=== PATIENT | male | born 1970 | race Caucasian/White ===

== ENCOUNTER 2021-02-09 11:10 | Day surgery (SDC) | payer OTHER ==
[2021-02-09] MEDS ORDERED: Ringers Lactate 1,000 ML IV ONE (11:37)
[2021-02-09] MEDS ORDERED: CEFAZOLIN/SWI 1gm 1 GM/10 ML SYR ONE ×2 (11:38→11:42)
[2021-02-09] MEDS ORDERED: BUPIVACAINE 0.25% PF 10 ML VIAL ONE (13:34)
[2021-02-09] MEDS ORDERED: propofoL 200 MG/20 ML VIAL IV ONE (13:38)
[2021-02-09] MEDS ORDERED: MIDAZOLAM HCL 2 MG/2 ML INJ ONE (13:38)
[2021-02-09] MEDS ORDERED: FENTANYL CITR 100 MCG/2 ML ONE (13:39)
[2021-02-09] MEDS ORDERED: dexAMETHasone 10 MG/ML VIAL ONE (13:50)
--- NOTE | 2021-02-09 14:26 | P.OP ---
Preoperative diagnosis: LEFT Shoulder and RIGHT neck lipomas Postoperative diagnosis: LEFT Shoulder and RIGHT neck lipomas Primary procedure: Excisoin of LEFT Shoulder and RIGHT neck lipomas Anesthesia: GETA + Local Estimated blood loss: <10cc Specimen: Lipomas Findings: ~5cm round shoulder lipoma, ~1cm RIGHT neck lipoma Complications: None Transferred to: Recovery Room Condition: Good
[2021-02-09] MEDS ORDERED: KETOROLAC 30 MG/ML INJ ONE (14:39)
--- NOTE | 2021-02-09 14:50 | OP ---
Date of Procedure: 02/09/2021 Surgeon: Wilmer Plata MD, Preoperative Diagnoses: Left shoulder and right neck lipomas. Postoperative Diagnoses: Left shoulder and right neck Lipomas. Procedures Performed: Excision of left shoulder and right neck lipoma. Anesthesia: General endotracheal plus local with 0.25% Marcaine. Estimated Blood Loss: 2 cc. Specimen: Lipoma. Findings: Approximately 5 cm round shoulder lipoma and approximately 1 cm to 1.5 cm right neck lipom a near the trapezius. Complications: None. Disposition: The patient transferred to recovery room in good condition. Procedure In Detail: After informed consent was obtained, the patient was brought to the operating r oom, prepped and draped in usual sterile fashion. After adequate anesthesia was achieved, a linear i ncision was made after appropriately anesthetizing the skin over the left shoulder posterior scapular region down through subcutaneous tissues with a 15 blade. Electrocautery was used to dissect circum ferentially around an obvious lipoma which was removed in its entirety. I sent it out en bloc. It w as approximately 5 cm, round lipomatous mass consistent with a benign lipoma. The cavity was then ir rigated. Hemostasis was achieved with electrocautery. The deep dermal plane was closed with interru pted 3-0 Vicryl sutures and the skin was closed with 4-0 Monocryl in a running fashion. Dermabond wa s placed over the top. Attention was then turned to the right neck trapezius area. An approximately 1 cm lipoma was evident in this area. The area was appropriately anesthetized and sharply incised o nce again with a 15 blade down to subcutaneous tissues and I dissected out circumferentially a lipoma tous mass in the trapezius area. This was consistent with a 1.5 cm lipoma that was sent off for path ologic examination. The wound cavity was then irrigated and hemostasis was achieved with electrocaut ivan. Deep dermal plane was closed once again with a 3-0 Vicryl suture and skin was closed with 4-0 M onocryl in a running fashion Dermabond was placed over the top. The patient tolerated the procedure well without evidence of complication, transferred to PACU in good condition. All counts were correc t at the end of the case. TK/MODL Voice ID: [id number] Report ID: [id number]
[2021-02-09 15:23] VITALS: BP 121/69; TEMP 97.2; O2SAT 98
== END 2021-02-09 15:45 | disposition home or self-care (01) ==
LOC: OR 11:10
PROVIDERS: ATTEND Surgery
PROC: 0JB40ZZ Excision of Right Neck Subcutaneous Tissue and Fascia, Open Approach (ICD-10-PCS; 2021-02-09)
PROC: 0JBF0ZZ Excision of Left Upper Arm Subcutaneous Tissue and Fascia, Open Approach (ICD-10-PCS; principal; 2021-02-09 13:00)
DX: D17.1 Benign lipomatous neoplasm of skin and subcutaneous tissue of trunk (principal); D17.0 Benign lipomatous neoplasm of skin and subcutaneous tissue of head, face and neck; Z20.822 Contact with and (suspected) exposure to COVID-19
CPT/HCPCS: 88304; 11406; 11422; U0003; J2704; J2250; J3010; J1100; J0690 ×2; J7120

== ENCOUNTER 2021-09-17 08:21 | Day surgery (SDC) | payer OTHER ==
[2021-09-17] MEDS ORDERED: Ringers Lactate 1,000 ML IV ONE ×2 (08:58→11:47)
[2021-09-17] MEDS ORDERED: CEFAZOLIN/SWI 2gm 2 GM/20 ML SYR ONE (08:58)
[2021-09-17] MEDS ORDERED: propofoL 200 MG/20 ML VIAL IV ONE (10:30)
[2021-09-17] MEDS ORDERED: MIDAZOLAM HCL 2 MG/2 ML INJ ONE (10:31)
[2021-09-17] MEDS ORDERED: FENTANYL CITR 100 MCG/2 ML ONE (10:31)
[2021-09-17] MEDS ORDERED: KETOROLAC 30 MG/ML INJ ONE (10:31)
[2021-09-17] MEDS ORDERED: dexAMETHasone 10 MG/ML VIAL ONE (10:31)
[2021-09-17] MEDS ORDERED: LIDOCAINE 2% MPF 5 ML VIAL ONE (10:31)
[2021-09-17] MEDS ORDERED: BUPIVACAINE 0.25% PF 10 ML VIAL ONE ×2 (10:32→11:31)
[2021-09-17] MEDS ORDERED: ONDANSETRON 4 MG/2 ML VIAL ONE (10:33)
[2021-09-17] MEDS ORDERED: ROCURONIUM 50 MG/5 ML VIAL IV ONE (10:39)
[2021-09-17] MEDS ORDERED: BUPIVACAINE 0.5% PF 10 ML VIAL ONE (11:30)
[2021-09-17] MEDS ORDERED: NS 0.9% VIAL 20 ML ONE (11:33)
[2021-09-17] MEDS ORDERED: dexAMETHasone 4 MG/ML VIAL ONE (11:36)
--- NOTE | 2021-09-17 11:51 | P.OP ---
Preoperative diagnosis: Recurrent Ventral Incisional Hernia Postoperative diagnosis: Recurrent Ventral Incisional Hernia Primary procedure: Laparoscopic Ventral Hernia Repair with Mesh Anesthesia: GETA + Local Estimated blood loss: <5cc Specimen: none Findings: ventral incisional hernia Complications: None Transferred to: Recovery Room Condition: Good
[2021-09-17 12:33] VITALS: O2SAT 100
[2021-09-17 13:00] VITALS: BP 135/80
[2021-09-17 14:31] VITALS: TEMP 96.5
--- NOTE | 2021-09-17 23:04 | OP ---
Date of Procedure: 09/17/2021 Surgeon: Wilmer Plata MD, Preoperative Diagnosis: Recurrent ventral incisional hernia. Postoperative Diagnosis: Recurrent ventral incisional hernia. Procedure Performed: A laparoscopic ventral hernia repair with mesh. Anesthesia: General endotracheal plus local with 0.25% Marcaine. Estimated Blood Loss: Less than 5 mL. Specimen: None. Findings: Ventral incisional supraumbilical hernia. Complications: None. Disposition: The patient was transferred to recovery room in good condition. Implants: 1.An 11.[address] mesh with echo positioning System. 2.SorbaFix absorbable fixation tacking system. Procedure In Detail: After informed was obtained, the patient was brought to the operating room, pre pped and draped in the usual sterile fashion. After adequate anesthesia was achieved, an area in the left upper quadrant was anesthetized with 0.25% Marcaine and sharply incised. A 5 mm optical trocar was introduced in the abdomen without complication. Insufflation was obtained to 15 mmHg at this ti me. No injury to vital structures upon entry into the abdomen. At this point, additional trocar sit e was chosen in the left lower quadrant, similarly anesthetized and sharply incised. A 12 mm trocar was placed under direct vision without any complication. I then used a LigaSure device to take down the partially the falciform ligament superiorly and some of the preperitoneal fat, which was found to be contained in a supraumbilical hernia. This area was swept clean until good fascial tissue was ap preciated. The Endo stitch with the V-Loc was then used to run the stitch with good approximation of tissues. I then sized 11.4 cm Ventralight mesh with echo positioning system and placed it in the pr eperitoneal space, deployed the balloon system, and then secured it with a double crown tack system a nd removed the balloon deployment system. At this point, approximately 60 tacks were used to secure it to the anterior abdominal wall with good apposition of tissues. The patient was then slightly rol led away and I closed the defect using a Zechariah-Trish suture passer with 0 Vicryl in interrupted f ashion with good approximation of tissues. The abdomen was then completely desufflated under direct visualization without any complication. Remaining trocars were removed. All skin edges were copious ly irrigated and closed with 4-0 Monocryl in a running fashion. Dermabond was placed over top. The patient tolerated the procedure well without any complication and transferred to PACU in good conditi on. All counts were correct at the end of the case. NANCY/CORINE Voice ID: [id number] Report ID: [id number]
== END 2021-09-17 13:25 | disposition home or self-care (01) ==
LOC: OR 08:21
PROVIDERS: ATTEND Surgery
PROC: 0WUF4JZ Supplement Abdominal Wall with Synthetic Substitute, Percutaneous Endoscopic Approach (ICD-10-PCS; principal; 2021-09-17 10:15)
DX: K43.2 Incisional hernia without obstruction or gangrene (principal); U07.1 COVID-19
CPT/HCPCS: 80048; 36415; 49656; U0003; J2704; J1100 ×2; J2250; J3010; J0690; J7120 ×2; J2405; C1781

== ENCOUNTER 2024-04-09 08:14 | Day surgery (SDC) | payer OTHER ==
[2024-04-07 16:10] LABS: Absolute Basophils 0.1 K/uL (0-0.5); Absolute Eosinophils 0.2 K/uL (0-0.5); Absolute Lymphocytes (CBC) 2.6 K/uL (0.7-4.9); Absolute Monocytes 0.8 K/uL (0.1-1.3); Absolute Neutrophil 4.2 K/uL (1.8-8.0); Basophils % 0.8 % (0-1.3); Eosinophils % 2.2 % (0-4.4); Hemoglobin 15.1 g/dL (13.6-17.9); Lymphocytes % 33.5 % (15.3-44.8); MCH 30.5 pg (27.0-35.0); MCV 84.9 fL (80-100); Monocytes % 10.2 % (3.3-12.3); Neutrophils % 53.3 % (41.7-73.7); Nucleated Red Blood Cells % 0.2 % (0-0); Platelets 204 thou/uL (152-406); RBC Red Blood Cell Count 4.96 M/uL (4.33-5.43); Red Cell Distribution Width 13.8 % (12.1-15.2)
[2024-04-07 16:21] LABS: Anion Gap 8.6 mEq/L (5.0-15.0); Potassium 3.6 mEq/L (3.5-5.1)
--- NOTE | 2024-04-08 11:52 | EKG ---
Test Date: 2024-04-07 Test Time: 15:14:10 Dice Manager: PILO MEASUREMENT RESULTS: Intervals: Rate: 65 CO: 162 QRSD: 96 QT: 398 QTc: 413 [place]: P: 22 CO: 162 QRS: -29 T: 46 INTERPRETIVE STATEMENTS: Normal sinus rhythm Normal ECG No previous ECG available for comparison Electronically Signed On 04-08-24 11:50:22 CDT by Wilman Kerr
[2024-04-09] MEDS: Ringers Lactate 1,000 ML IV ONE (08:35)
[2024-04-09] MEDS ORDERED: ONDANSETRON 4 MG/2 ML VIAL ONE (09:56)
[2024-04-09] MEDS ORDERED: LIDOCAINE 2% MPF 5 ML VIAL ONE (09:56)
[2024-04-09] MEDS ORDERED: propofoL 200 MG/20 ML VIAL IV ONE (09:56)
[2024-04-09] MEDS ORDERED: MIDAZOLAM HCL 2 MG/2 ML INJ ONE (09:57)
[2024-04-09] MEDS ORDERED: FENTANYL CITR 100 MCG/2 ML ONE (09:57)
[2024-04-09] MEDS ORDERED: LIDOCAINE HCL/EPINEPHRINE 20 ML MDV ONE (09:58)
[2024-04-09] MEDS: CEFAZOLIN SODIUM 2 GM/VIAL ONE (10:10)
[2024-04-09] MEDS: LIDOCAINE HCL/EPINEPHRINE 20 ML MDV ONE (10:33)
[2024-04-09] MEDS ORDERED: EPHEDRINE SULF 50 MG/ML VIAL ONE (10:55)
--- NOTE | 2024-04-09 11:14 | P.OP ---
Preoperative diagnosis: RIGHT upper Back Intramuscular Lipoma Postoperative diagnosis: RIGHT upper Back Intramuscular Lipoma Primary procedure: Excision of RIGHT upper Back Intramuscular Lipoma Anesthesia: GETA Estimated blood loss: <5cc Specimen: Lipoma / skin bridge Findings: small subcutanous lipoma, 7cm x 6cm x 4cm intramuscular lipoma Complications: None Drain(s): AJIT drain (10 Chadian round) Fluids & blood products: Transferred to: Recovery Room () Condition: Good
[2024-04-09 12:00] VITALS: TEMP 97
[2024-04-09] MEDS ORDERED: HYDROCODONE/APAP 5/325 MG TAB ONE (12:03)
--- NOTE | 2024-04-09 12:17 | OP ---
Date of Procedure: 04/09/2024 Surgeon: Wilmer Plata MD, Preoperative Diagnosis: Right upper back intramuscular lipoma. Postoperative Diagnosis: Right upper back intramuscular lipoma. Procedure Performed: Excision of right upper back intramuscular lipoma. Anesthesia: General endotracheal. Estimated Blood Loss: Less than 5 cc. Specimens: Lipoma and a skin bridge. Findings: There was a small subcutaneous lipoma; however, there was a significantly larger 7 cm x 6 cm x 4 cm intramuscular lipoma abutting the scapula. Complications: None. Drains: 10-Qatari round AJIT drain placed. Disposition: The patient was transferred to recovery room in good condition. Procedure In Detail: After informed consent was obtained, the patient was brought to the operating r oom, prepped in the usual sterile fashion. After adequate anesthesia was achieved, I made an ellipti peyton incision down circumferentially around the area of palpable nodular lipomatous tissue and dissect ed circumferentially down to expose a small subcutaneous lipoma and continued down to palpate the sca pular muscles. I these using blunt dissection and stretched them to allow for access to an intramuscular lipoma, which was abutting the scapular bone on the right side. I ultimately dissecte d it circumferentially around using predominantly blunt dissection. I then brought the lipoma into t he field and ligated these structures and passed it off for pathologic examination. The area was molecular spectroscopist iously irrigated. The muscular plane was reapproximated with the fascicles and fascia using an inter rupted 3-0 Vicryl suture. The deep dermal plane was then reapproximated using 3-0 Vicryl suture afte r irrigating the area once again and a 10-Qatari round AJIT drain was brought out through a separate me dial stab incision, secured using a 3-0 nylon. The 3-0 Vicryl was then used to complete the deep paolo mal plane and skin was closed with interrupted nylon 3-0 sutures in an interrupted fashion with good approximation of tissue. The sterile dressing was placed over top. The patient tolerated procedure without incident or complication, and transferred to PACU in good condition. All counts were correct at the end of the case. TK/MODL Voice ID: [id number] Report ID: [id number]
[2024-04-09 13:28] VITALS: O2SAT 97
[2024-04-09 13:37] VITALS: BP 122/58
== END 2024-04-09 12:43 | disposition home or self-care (01) ==
LOC: OR 08:14 → EEVIPCON 09:00 → OR 12:43
PROVIDERS: ATTEND Surgery
PROC: 0JB70ZZ Excision of Back Subcutaneous Tissue and Fascia, Open Approach (ICD-10-PCS; principal; 2024-04-09 10:00)
DX: D17.1 Benign lipomatous neoplasm of skin and subcutaneous tissue of trunk (principal)
CPT/HCPCS: 93005; 85025; 80048; 36415; 88304; 11406; 12032; J2704; J2001; J2250; J3010; J2405; J7120